=== PATIENT | female | born 1955 | race Caucasian/White ===

== ENCOUNTER 2018-02-08 09:56 | Emergency (ER) | payer OTHER ==
[~2018-02-08] VITALS: Ht 162.6 cm; Wt 63.5 kg
[2018-02-08 10:01] VITALS: BP 131/68
[2018-02-08] MEDS ORDERED: PENICILLIN V P500 M1 PO (10:38)
[2018-02-08] MEDS ORDERED: BACTROBAN NASAL1 GM TOP (10:38)
--- NOTE | 2018-02-08 10:38 | ED SKIN/ALLERGY COMPLAINT ---
History of Present Illness General Chief Complaint: Animal/Insect Bite Stated Complaint: INSECT BITE? ON FACE Source: patient, old records Exam Limitations: no limitations Vital Signs & Intake/Output Vital Signs & Intake/Output Vital Signs Date Time Temp Pulse Resp B/P B/P Pulse O2 O2 Flow FiO2 Mean Ox Delivery Rate 02/08 1001 96.7 62 16 131/68 97 Room Air Allergies Coded Allergies: NO KNOWN ALLERGIES (02/10/12) Reconcile Medications Mupirocin Calcium (Bactroban Nasal) 2 % OINT...G. 1 GM TOP BID impetigo Penicillin V Potassium 500 MG TABLET 1 TAB PO TID impetigo Triage Note: 62 Y/O FEMALE (JUST BELOW R EYE) X 2-3 WEEKS. STATES SHE THOUGHT IT WAS A BUG BITE FROM [place]AMPING HOWEVER SEEMS TO BE GETTING BIGGER AND NOW SCABBED OVER. DENIES PAIN. DENIES ITCHING. SMALL AREA NOTED. Triage Nurses Notes Reviewed? yes Onset: Last week Duration: day(s):, constant, continues in ED Timing: recent history Severity: mild Location: face Possible Factors: insect bite, insect sting No Modifying Factors: none Associated Symptoms: change in skin texture, rash LMP (ages 10-50): post menopausal : No Patient currently breastfeeds: No HPI: 1 day prior to admission patient was visiting [place] received several insect bites and stings over her body. One has persisted on her right cheek. She denies fever chills nausea vomiting diarrhea abdominal pain chest pain shortness of breath headache dysuria bleeding. Past History Travel History Traveled to [place] past 21 day No Medical History Any Pertinent Medical History? none Neurological: NONE EENT: NONE Cardiovascular: NONE Respiratory: NONE Gastrointestinal: NONE Hepatic: NONE Renal: NONE Musculoskeletal: NONE Psychiatric: NONE Endocrine: NONE Blood Disorders: NONE Cancer(s): NONE SHIRT PRESSER/Reproductive: NONE Surgical History Surgical History: non-contributory Psychosocial History What is your primary language [place] Tobacco Use: Current Daily Use Daily Tobacco Use Amount/Type: =< 4 Cigarettes daily Family History Hx Contributory? No Review of Systems Review of Systems Constitutional: Reports: no symptoms. EENTM: Reports: no symptoms. Respiratory: Reports: no symptoms. Cardiovascular: Reports: no symptoms. GI: Reports: no symptoms. Genitourinary: Reports: no symptoms. Musculoskeletal: Reports: no symptoms. Skin: Reports: see HPI, rash. Neurological/Psychological: Reports: no symptoms. Hematologic/Endocrine: Reports: no symptoms. Immunologic/Allergic: Reports: no symptoms. All Other Systems: Reviewed and Negative Physical Exam Physical Exam General Appearance: well developed/nourished, alert, awake, anxious, comfortable Head: atraumatic, normal appearance Eyes: Bilateral: normal appearance, PERRL, EOMI. Ears, Nose, Throat: normal pharynx, normal ENT inspection, hearing grossly normal Neck: normal inspection, supple, full range of motion, no midline tenderness Respiratory: normal breath sounds, chest non-tender, no respiratory distress, quiet respiration, lungs clear Cardiovascular: regular rate/rhythm, normal peripheral pulses, norml femoral pulses equa Peripheral Pulses: 4+ carotid (R), 4+ carotid (L) Gastrointestinal: normal bowel sounds, soft, non-tender, no organomegaly Back: normal inspection, normal range of motion, no vertebral tenderness Extremities: normal inspection, normal capillary refill, normal range of motion, no edema Neurologic/Psych: no motor/sensory deficits, awake, alert, oriented x 3, normal gait, normal mood/affect, otolaryngology surgeon II-XII nml as tested Reflexes: 2+: bicep (R), bicep (L). Skin: intact, warm/dry, rash Skin Problem Location: face (right cheek) Skin Problem Character: macules (with scaling desquamation), rash, scales Lymphatic: no anterior cervical hector Progress Differential Diagnosis: abscess/cellulitis, allergic reaction, contact dermatitis Plan of Care: bactroban, pen Departure Departure Time of Disposition: 8 Disposition: HOME OR SELF CARE Condition: Stable Clinical Impression Primary Impression: Impetigo Referrals: Ozzy HERNANDEZ,Valeria Liang Call for dermatology follow up Departure Forms: Customer Survey General Discharge Information Prescriptions: Current Visit Scripts Mupirocin Calcium (Bactroban Nasal) 1 GM TOP BID #10 GM Penicillin V Potassium 1 TAB PO TID #30 TAB
== END 2018-02-08 10:42 ==
LOC: ERH 09:56
DX: L01.00 Impetigo, unspecified (principal)